=== PATIENT | female | born 2000 | race Caucasian/White ===

== ENCOUNTER 2021-10-31 11:16 | Emergency (ER) | payer OTHER ==
[~2021-10-31] VITALS: Ht 188 cm; Wt 136.0 kg
[2021-10-31 11:24] VITALS: BP 148/105
[2021-10-31] MEDS ORDERED: ONDANSETRON 4 MG (ZOFRAN) ORAL DISSOLVE TAB PO ONE (11:45)
[2021-10-31] MEDS ORDERED: IBUPROFEN 600 MG (MOTRIN) TAB PO ONE (11:45)
[2021-10-31] MEDS ORDERED: ONDA8TAB13 PO (11:50)
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
== END 2021-10-31 12:14 | disposition home or self-care (01) ==
LOC: ER 11:20
DX: S06.0X0A Concussion without loss of consciousness, initial encounter (principal); Z28.310 Unvaccinated for COVID-19; V49.40XA Driver injured in collision with unspecified motor vehicles in traffic accident, initial encounter; Y92.410 Unspecified street and highway as the place of occurrence of the external cause
CPT/HCPCS: 70450

== ENCOUNTER 2022-06-18 20:47 | Emergency (ER) | payer OTHER ==
[~2022-06-18] VITALS: Ht 187.9 cm; Wt 154.2 kg
[~2022-06-18 20:47] MED LIST: ONDA8TAB13 PO
[2022-06-18 21:25] LABS: BILIRUBIN,URINE NEGATIVE (NEGATIVE); CLARITY,URINE CLEAR; COLOR,URINE YELLOW; GLUCOSE, URINE (UA) NEGATIVE (NEGATIVE); KETONES,URINE NEGATIVE (NEGATIVE); LEUKOCYTE ESTERASE ,URINE TRACE (NEGATIVE); NITRITE,URINE NEGATIVE (NEGATIVE); PROTEIN,URINE NEGATIVE (NEGATIVE)
[2022-06-18] MEDS ORDERED: NS IV 1000 ML 1,000 ML IV SCH (21:30)
[2022-06-18] MEDS ORDERED: ONDANSETRON 4 MG/2 ML (SDV) Z0FRAN IVP ONE (21:30)
--- NOTE | 2022-06-18 21:36 | ED Abdominal Pain ---
General Chief Complaint: General Problems/Pain Stated Complaint: BACK/ABD PAIN/NAUSEA/DIZZY Source of Information: Patient Exam Limitations: No Limitations (EDEN FLEMING APRN) History of Present Illness Date Seen by Provider: June 18, 2022 Time Seen by Provider: 20:56 Initial Comments 22-year-old female presents to the ER with complaints of generalized abdominal pain, nausea, dizziness starting today. She denies vomiting and diarrhea. Last had a normal bowel movement this morning. Denies fevers, shortness of air, dysuria. She is on Depo, last menstrual cycle was 5 years ago. She also is complaining of chronic lower back pain since February. States she was doing PT and seeing a chiropractor and was recently on steroids and hydrocodone. She finished her steroids yesterday. She reports intermittent numbness in her legs. Denies bowel or bladder incontinence. She is able to walk. (EDEN FLEMING APRN) Allergies and Home Medications Allergies Coded Allergies: No Known Drug Allergies (Unverified , 10/31/21) Patient Home Medication List Home Medication List Reviewed: Yes (EDEN FLEMING APRN) Ondansetron (Ondansetron Odt) 8 Mg Tab.rapdis, 8 MG PO Q6H PRN for NAUSEA/VOMITING Prescribed by: ALIVIA GONZALES on 10/31/21 1150 Ondansetron (Ondansetron Odt) 4 Mg Tab.rapdis, 4 MG SL Q4H PRN for NAUSEA/VOMITING Prescribed by: Eden Fleming on 06/18/22 2326 Review of Systems Review of Systems Constitutional: see HPI (EDEN FLEMING APRN) Past Kzjevlc-Hitdrd-Tdegxu Hx Patient Social History Tobacco Use?: No Use of E-Cig and/or Vaping dev: No Substance use?: No Alcohol Use?: Yes Alcohol type: Beer Alcohol Frequency: Several times a month Pt feels they are or have been: No (EDEN FLEMING APRN) Immunizations Up To Date Influenza Vaccine Up-to-Date: No; Not Current First/Initial COVID19 Vaccinat: N/A Second COVID19 Vaccination Arnold: NONE Third COVID19 Vaccination Date: NONE (EDEN FLEMING APRN) Physical Exam Vital Signs Vital Signs - First Documented 06/18/22 21:10 Temp 37.1 Pulse 101 Resp 16 B/P (MAP) 124/84 (97) Pulse Ox 98 O2 Delivery Room Air (JACLYN HOGUE MD) Vital Signs Capillary Refill : (EDEN FLEMING APRN) Height/Weight/BMI Height: '" Weight: lbs. oz. kg; 38.00 BMI Method: General Appearance: WD/WN, no apparent distress Neck: supple, normal inspection Respiratory: lungs clear, normal breath sounds, no respiratory distress, no accessory muscle use Cardiovascular: regular rate, rhythm Gastrointestinal: normal bowel sounds, non tender, soft Extremities: normal range of motion, normal inspection Neurologic/Psychiatric: alert, normal mood/affect Skin: normal color, warm/dry (EDEN FLEMING APRN) Progress/Results/Core Measures Results/Orders Lab Results Laboratory Tests Test 06/18/22 21:15 06/18/22 21:50 Range/Units Urine Color YELLOW Urine Clarity CLEAR Urine pH 7.0 5-9 Urine Specific [place] 1.020 1.016-1.022 Urine Protein NEGATIVE NEGATIVE Urine Glucose (UA) NEGATIVE NEGATIVE Urine Ketones NEGATIVE NEGATIVE Urine Nitrite NEGATIVE NEGATIVE Urine Bilirubin NEGATIVE NEGATIVE Urine Urobilinogen 1.0 < = 1.0 MG/DL Urine Leukocyte Esterase TRACE H NEGATIVE Urine RBC (Auto) NEGATIVE NEGATIVE Urine RBC NONE /HPF Urine WBC 2-5 /HPF Urine Squamous Epithelial Cells 0-2 /HPF Urine Crystals NONE /LPF Urine Bacteria MODERATE H /HPF Urine Casts NONE /LPF Urine Mucus MODERATE H /LPF Urine Culture Indicated YES White Blood Count 13.5 H 4.3-11.0 10^3/uL Red Blood Count 5.05 3.80-5.11 10^6/uL Hemoglobin 14.9 11.5-16.0 g/dL Hematocrit 44 35-52 % Mean Corpuscular Volume 87 80-99 fL Mean Corpuscular Hemoglobin 30 25-34 pg Mean Corpuscular Hemoglobin Concent 34 32-36 g/dL Red Cell Distribution Width 13.3 10.0-14.5 % Platelet Count 299 130-400 10^3/uL Mean Platelet Volume 9.9 9.0-12.2 fL Immature Granulocyte % (Auto) 1 % Neutrophils (%) (Auto) 82 H 42-75 % Lymphocytes (%) (Auto) 11 L 12-44 % Monocytes (%) (Auto) 3 0-12 % Eosinophils (%) (Auto) 4 0-10 % Basophils (%) (Auto) 0 0-10 % Neutrophils # (Auto) 11.1 H 1.8-7.8 10^3/uL Lymphocytes # (Auto) 1.4 1.0-4.0 10^3/uL Monocytes # (Auto) 0.5 0.0-1.0 10^3/uL Eosinophils # (Auto) 0.5 H 0.0-0.3 10^3/uL Basophils # (Auto) 0.0 0.0-0.1 10^3/uL Immature Granulocyte # (Auto) 0.1 0.0-0.1 10^3/uL Sodium Level 139 135-145 MMOL/L Potassium Level 3.6 3.6-5.0 MMOL/L Chloride Level 105 98-107 MMOL/L Carbon Dioxide Level 20 L 21-32 MMOL/L Anion Gap 14 5-14 MMOL/L Blood Urea Nitrogen 11 7-18 MG/DL Creatinine 0.81 0.60-1.30 MG/DL Estimat Glomerular Filtration Rate 105 BUN/Creatinine Ratio 14 Glucose Level 107 H 70-105 MG/DL Calcium Level 9.2 8.5-10.1 MG/DL Corrected Calcium 9.0 8.5-10.1 MG/DL Magnesium Level 1.9 1.6-2.4 MG/DL Total Bilirubin 0.8 0.1-1.0 MG/DL Aspartate Amino Transf (AST/SGOT) 16 5-34 U/L Alanine Aminotransferase (ALT/SGPT) 23 0-55 U/L Alkaline Phosphatase 57 40-136 U/L Total Protein 7.5 6.4-8.2 GM/DL Albumin 4.3 3.2-4.5 GM/DL Amylase Level 46 25-125 U/L Lipase 16 8-78 U/L (JACLYN HOGUE MD) Micro Results Microbiology 06/18/22 Urine Culture - Final, Complete See Comments Strep agalactiae Group B (JACLYN HOGUE MD) Vital Signs/I&O 06/18/22 06/18/22 21:10 23:35 Temp 37.1 37.0 Pulse 101 89 Resp 16 16 B/P (MAP) 124/84 (97) 119/73 Pulse Ox 98 99 O2 Delivery Room Air Room Air (JACLYN HOGUE MD) Progress Progress Note : Time: 21:35 Progress Note Patient seen and evaluated, resting comfortably in bed, no acute distress. Based on exam and symptoms, work-up initiated including CBC, CMP, amylase, lipase, magnesium, UA, urine , EKG. Zofran ordered. Labs reviewed. CBC shows elevated WBC 13.5, this is possibly from her recent prednisone use. CMP shows slightly decreased CO2 20. Magnesium normal 1.9. Amylase and lipase normal. Urinalysis shows trace leukocytes, 2-5 WBCs, mo derate bacteria. Patient denies any UTI symptoms. Will not treat at this time. Results discussed with patient. Patient reports she is feeling better after pain medication. She states she is hungry, and is ready to go home. Discharge structures and return precautions provided. (EDEN FLEMING APRN) Initial ECG Impression Date: June 18, 2022 Initial ECG Impression Time: 22:07 Initial ECG Rate: 88 Initial ECG Rhythm: Normal Sinus Initial ECG Intervals: Normal Initial ECG Impression: Normal Initial ECG Comparisson: No Previous ECG Available (EDEN FLEMING APRN) Departure Impression Primary Impression: Abdominal pain Disposition: 01 HOME, SELF-CARE Condition: Stable Departure-Patient Inst. Decision time for Depature: 23:25 (EDEN FLEMING APRN) Referrals: [facility] [place] (PCP/Family) Primary Care Physician Patient Instructions: Abdominal Pain, Adult ED Add. Discharge Instructions: Take Zofran as needed for nausea and vomiting, only take when needed because it can cause constipation. Follow-up with your primary care provider if symptoms return. Return for severe pain, recurrent vomiting, or any other new, concerning, or worsening symptoms. All discharge instructions reviewed with patient and/or family. Voiced understanding. Scripts Ondansetron (Ondansetron Odt) 4 Mg Tab.rapdis 4 MG SL Q4H PRN for NAUSEA/VOMITING, #20 TAB 0 Refills Prov: EDEN FLEMING APRN 06/18/22 EDEN FLEMING APRN June 18, 2022 21:36 JACLYN HOGUE MD June 21, 2022 09:11
[2022-06-18 21:42] LABS: BACTERIA,URINE MODERATE /HPF; SQUAMOUS EPITHELIAL CELL,UR 0-2 /HPF
[2022-06-18 22:13] LABS: BASOPHILS % (AUTO) 0 % (0-10); EOSINOPHILS # (AUTO) 0.5 10^3/uL (0.0-0.3); EOSINOPHILS % (AUTO) 4 % (0-10); HEMATOCRIT 44 % (35-52); HEMOGLOBIN 14.9 g/dL (11.5-16.0); LYMPHOCYTES # (AUTO) 1.4 10^3/uL (1.0-4.0); LYMPHOCYTES % (AUTO) 11 % (12-44); MEAN CORPUSCULAR HEMOGLOBIN 30 pg (25-34); MEAN CORPUSCULAR HGB CONC 34 g/dL (32-36); MEAN CORPUSCULAR VOLUME 87 fL (80-99); MEAN PLATELET VOLUME 9.9 fL (9.0-12.2); MONOCYTES # (AUTO) 0.5 10^3/uL (0.0-1.0); MONOCYTES % (AUTO) 3 % (0-12); NEUTROPHILS # (AUTO) 11.1 10^3/uL (1.8-7.8); NEUTROPHILS % (AUTO) 82 % (42-75); PLATELET COUNT 299 10^3/uL (130-400); WHITE BLOOD COUNT 13.5 10^3/uL (4.3-11.0)
[2022-06-18 22:31] LABS: ALBUMIN 4.3 GM/DL (3.2-4.5); POTASSIUM 3.6 MMOL/L (3.6-5.0)
[2022-06-18 22:32] LABS: CALCIUM 9.2 MG/DL (8.5-10.1)
[2022-06-18 22:33] LABS: TOTAL PROTEIN 7.5 GM/DL (6.4-8.2)
[2022-06-18 22:35] LABS: BILIRUBIN,TOTAL 0.8 MG/DL (0.1-1.0)
[2022-06-18 22:37] LABS: CREATININE SERUM 0.81 MG/DL (0.60-1.30)
[2022-06-18 22:39] LABS: MAGNESIUM 1.9 MG/DL (1.6-2.4)
[2022-06-18] MEDS ORDERED: fentaNYL INJ 100 MCG/2 ML AMP IVP ONE (23:00)
[2022-06-18] MEDS ORDERED: ONDA4TAB11 SL (23:26)
[2022-06-18 23:35] VITALS: BP 119/73
== END 2022-06-18 23:35 | disposition home or self-care (01) ==
LOC: EDUNIT# 20:47 → ER 20:50
DX: R10.84 Generalized abdominal pain (principal); R11.0 Nausea; M54.50 Low back pain, unspecified; G89.29 Other chronic pain; D72.829 Elevated white blood cell count, unspecified; R82.71 Bacteriuria; Z79.891 Long term (current) use of opiate analgesic; Z28.310 Unvaccinated for COVID-19
CPT/HCPCS: 36415; 80053; 81000; 82150; 83690; 83735; 84703; 85025; 87077; 87088; 93005